=== PATIENT | female | born 1945 | race Two or more races ===

== ENCOUNTER 2016-09-11 13:37 | Inpatient (IN) | payer OTHER ==
[~2016-09-11] VITALS: Ht 152.4 cm; Wt 54.0 kg
[~2016-09-11 13:37] MED LIST: AMLODIPINE BESY10 MG GT; ATORVASTATIN CA40 MG GT; ATORVASTATIN CA80 MG PO; ATROPINE 1100 DROP/5 BOTH EYES; CERTA-VITE240 ML GT; CHILDREN'S ASPI81 M1 GT; CHILDREN'S ASPI81 M1 PO; DONEPEZIL HCL5 MG PO; FLUOXETINE HCL20 MG GT; GEMFIBROZIL600 MG PO; GLUCOPHAGE500 MG PO; HEPARIN SO5000 UNITS SC; LANTUS 10100 UNITS/ SC; LEVEMIR100 UNIT/2 SC; LEVOFLOXACIN750 MG PO; LISINOPRIL10 MG PO; LISINOPRIL5 MG PO; METFORMIN HCL1000 MG PO; METFORMIN HCL500 MG GT; METFORMIN HCL500 MG PO; METOPROLOL SUC100 MG PO; METOPROLOL TART50 MG GT; MYCOSTATIN 100,60 ML PO; NITROSTAT0.4 MG SL; NOVOLOG 10100 UNITS/ SC; PLAVIX75 MG GT; PREVACID SOLUTA30 MG GT; RANITIDINE15 MG/1 ML GT; SERTRALINE HCL50 MG GT; TYLENOL REGULA325 MG GT; ULTRAM50 MG PO; VANCOCIN HCL125 MG GT; VANCOMYCIN HCL125 MG PO; ZESTRIL10 MG PO
[2016-09-11 15:46] LABS: HEMATOCRIT 30.3 % (36.0-46.0); MCH 24.2 PG (29.0-34.0); MCHC 31.7 G/DL (30.0-36.0); MCV 76.3 FL (83-99); MEAN PLAT.VOLUME 8.6 uM^3 (9.5-12.4); PLATELET COUNT 431 K/uL (156-360); RBC DIS.WIDTH-CV 16.2 % (11.8-14.6); RBC DIS.WIDTH-SD 43.3 % (39-53); RED BLOOD COUNT 3.97 M/uL (3.80-5.20); WHITE BLOOD COUNT 20.3 K/uL (4.1-10.2)
[2016-09-11 15:54] LABS: CHLORIDE 96 mEq/L (99-109); POTASSIUM 4.9 mEq/L (3.7-5.4); SODIUM 131 mEq/L (136-147)
[2016-09-11 15:59] LABS: GLUCOSE 299 mg/dL (70-99)
[2016-09-11 16:00] LABS: ANION GAP 15 MEQ/L (2-14)
[2016-09-11 16:03] LABS: GFR ESTIMATE (CALCULATED) > 59 mL/min/
[2016-09-11 16:04] LABS: UREA NITROGEN (BUN) 25 mg/dL (9-23)
[2016-09-11 16:06] LABS: TROP-I INTERPRETATION NEGATIVE; TROPONIN-I < 0.01 ng/mL (0.0-0.30)
[2016-09-11 21:15] VITALS: BP 181/87
[2016-09-11 23:00] LABS: TROP-I INTERPRETATION NEGATIVE; TROPONIN-I < 0.01 ng/mL (0.0-0.30)
[2016-09-11 23:57] VITALS: BP 174/89
[2016-09-12 04:41] VITALS: BP 159/80
[2016-09-12 05:51] LABS: TROP-I INTERPRETATION NEGATIVE; TROPONIN-I < 0.01 ng/mL (0.0-0.30)
[2016-09-12 09:39] VITALS: BP 163/91
[2016-09-12 10:15] LABS: POINT-OF-CARE USER ID NUTSLF44
[2016-09-12 12:05] VITALS: BP 138/84
[2016-09-12 12:13] LABS: POINT-OF-CARE USER ID NUTSLF44
[2016-09-12 15:00] VITALS: BP 152/86
[2016-09-12 16:59] LABS: POINT-OF-CARE USER ID NUTSLF44
[2016-09-12 20:00] VITALS: BP 166/81
[2016-09-12 23:55] VITALS: BP 170/87
[2016-09-13 04:00] VITALS: BP 146/80
[2016-09-13 06:50] LABS: HEMATOCRIT 30.1 % (36.0-46.0); MCH 24.1 PG (29.0-34.0); MCHC 31.6 G/DL (30.0-36.0); MCV 76.2 FL (83-99); MEAN PLAT.VOLUME 8.8 uM^3 (9.5-12.4); PLATELET COUNT 422 K/uL (156-360); RBC DIS.WIDTH-CV 16.4 % (11.8-14.6); RBC DIS.WIDTH-SD 45.7 % (39-53); RED BLOOD COUNT 3.95 M/uL (3.80-5.20); WHITE BLOOD COUNT 18.9 K/uL (4.1-10.2)
[2016-09-13 07:01] LABS: EOSINOPHIL COUNT 0.2 K/uL (0-0.3); IMMATURE GRANULOCYTE (%) 0.6 % (0.0-0.7); IMMATURE GRANULOCYTE COUNT 0.1 K/uL; MONOCYTE (%) 6.2 % (3-12); MONOCYTE COUNT 1.2 K/uL (0-0.8); NEUTROPHIL (%) 81.3 % (45-76); NEUTROPHIL COUNT 15.4 K/uL (1.8-6.4)
[2016-09-13 07:28] VITALS: BP 132/93
[2016-09-13 09:53] LABS: ADD MIUA? YES; BILIRUBIN NEGATIVE; BLOOD MODERATE; COLOR YELLOW ((YELLOW)); GLUCOSE (STRIP) NEGATIVE; KETONES NEGATIVE; LEUKOCYTES LARGE; NITRITE POSITIVE; PH, URINE 5.5 (5-8); PROTEIN (STRIP) 30; UROBILINOGEN 0.2 MG/DL (0.2-1.0)
[2016-09-13 11:19] LABS: BACTERIA 2+; CASTS NONE SEEN /LPF; CRYSTALS NONE SEEN; EPITHELIAL CELLS RARE; MUCUS NONE SEEN; WHITE BLOOD CELLS TNTC /HPF (0-5)
[2016-09-13 11:29] LABS: POINT-OF-CARE METER ID UU14174216
[2016-09-13 11:54] VITALS: BP 130/80
[2016-09-13 14:55] VITALS: BP 158/80
[2016-09-13 16:25] LABS: POINT-OF-CARE METER ID UU14174216
[2016-09-13 20:00] VITALS: BP 168/84
[2016-09-13 21:20] LABS: POINT-OF-CARE METER ID UU13113698
[2016-09-13 23:55] VITALS: BP 169/87
[2016-09-14 04:00] VITALS: BP 158/86
[2016-09-14 07:45] LABS: POINT-OF-CARE METER ID UU13113781
[2016-09-14 07:50] LABS: INTER. NORMALIZED RATIO 1.1; PROTHROMBIN TIME 11.6 (9.2-11.2); PTT 34.6 (25-32)
[2016-09-14 09:00] VITALS: BP 142/89
[2016-09-14 11:19] LABS: POINT-OF-CARE METER ID UU13113781
[2016-09-14 12:00] VITALS: BP 145/72
[2016-09-14 14:52] LABS: TYPE OF FLUID PLEURAL
[2016-09-14 15:21] LABS: BODY FLUID RBC'S 20000 /MM^3 (0-100); BODY FLUID WBC'S 7646 /MM^3 (0-500)
[2016-09-14 15:32] LABS: BODY FLUID LDH 97 IU/L
[2016-09-14 15:42] LABS: BODY FLUID EOSINOPHILS 0 % (0-25); MONO RAW COUNT 19; MONONUCLEAR WBC'S 19 %; POLY RAW COUNT 81; POLYNUCLEAR WBC'S 81 % (0-25)
[2016-09-14 16:58] LABS: POINT-OF-CARE METER ID UU13113781
[2016-09-14 18:23] VITALS: BP 156/101
[2016-09-14 19:45] VITALS: BP 167/85
[2016-09-14 20:53] LABS: POINT-OF-CARE METER ID UU13113781; POINT-OF-CARE USER ID ENVMNS
[2016-09-14 23:55] VITALS: BP 146/76
[2016-09-15 04:00] VITALS: BP 128/67
[2016-09-15 06:50] LABS: HEMATOCRIT 31.8 % (36.0-46.0); MCH 24.1 PG (29.0-34.0); MCHC 31.1 G/DL (30.0-36.0); MCV 77.6 FL (83-99); MEAN PLAT.VOLUME 8.9 uM^3 (9.5-12.4); PLATELET COUNT 438 K/uL (156-360); RBC DIS.WIDTH-CV 16.8 % (11.8-14.6); RBC DIS.WIDTH-SD 47.5 % (39-53)
[2016-09-15 06:59] LABS: EOSINOPHIL (%) 1.4 % (0-5); EOSINOPHIL COUNT 0.3 K/uL (0-0.3); IMMATURE GRANULOCYTE (%) 1.4 % (0.0-0.7); IMMATURE GRANULOCYTE COUNT 0.3 K/uL; LYMPHOCYTE COUNT 2.7 K/uL (1.0-2.8); MONOCYTE (%) 7.7 % (3-12); MONOCYTE COUNT 1.6 K/uL (0-0.8); NEUTROPHIL (%) 75.6 % (45-76); NEUTROPHIL COUNT 15.1 K/uL (1.8-6.4)
[2016-09-15 07:15] LABS: ANION GAP 11 MEQ/L (2-14); CHLORIDE 99 MEQ/L (99-109); GFR ESTIMATE (CALCULATED) 58 mL/min/; GLUCOSE 282 mg/dL (70-99); POTASSIUM 4.3 MEQ/L (3.7-5.4); SAMPLE HEMOLYSIS CHECK 0; SAMPLE ICTERIC CHECK 0; SAMPLE LIPEMIA CHECK 0; SODIUM 135 MEQ/L (136-147); UREA NITROGEN (BUN) 35 mg/dL (9-23)
[2016-09-15 08:30] VITALS: BP 172/81
[2016-09-15 11:57] VITALS: BP 174/84
[2016-09-15 17:00] VITALS: BP 138/75
[2016-09-15 20:40] VITALS: BP 142/69
[2016-09-15 20:42] LABS: POINT-OF-CARE USER ID ENVMNS
[2016-09-16 00:20] VITALS: BP 138/76
[2016-09-16 05:48] VITALS: BP 146/78
[2016-09-16 06:03] LABS: HEMATOCRIT 29.6 % (36.0-46.0); MCH 24.5 PG (29.0-34.0); MCHC 31.8 G/DL (30.0-36.0); MCV 77.3 FL (83-99); MEAN PLAT.VOLUME 8.8 uM^3 (9.5-12.4); PLATELET COUNT 426 K/uL (156-360); RBC DIS.WIDTH-CV 16.9 % (11.8-14.6); RBC DIS.WIDTH-SD 47.5 % (39-53); RED BLOOD COUNT 3.83 M/uL (3.80-5.20); WHITE BLOOD COUNT 17.4 K/uL (4.1-10.2)
[2016-09-16 08:08] LABS: POINT-OF-CARE METER ID UU13113698; POINT-OF-CARE USER ID ENVKC36
[2016-09-16 09:30] VITALS: BP 161/75
[2016-09-16 12:00] VITALS: BP 152/83
[2016-09-16 17:40] VITALS: BP 169/89
[2016-09-16 20:02] VITALS: BP 159/77
[2016-09-16 21:16] LABS: POINT-OF-CARE METER ID UU13113698
[2016-09-17] VITALS: BP 183/81
[2016-09-17 04:07] VITALS: BP 169/83
[2016-09-17 08:00] LABS: POINT-OF-CARE METER ID UU14174216
[2016-09-17 08:16] VITALS: BP 136/66
[2016-09-17 09:37] LABS: C DIFF TOXIN NEGATIVE (NEGATIVE); PROBE CHECK PASS; SPECIMEN PROCESSING CONTROL PASS
[2016-09-17 10:38] LABS: POINT-OF-CARE METER ID UU14174216
[2016-09-17 12:13] VITALS: BP 154/68
[2016-09-17 16:20] LABS: POINT-OF-CARE METER ID UU14174216
[2016-09-17 16:35] VITALS: BP 144/78
[2016-09-17 19:44] VITALS: BP 160/75
[2016-09-17 21:53] LABS: POINT-OF-CARE METER ID UU14174216
[2016-09-18] VITALS: BP 155/79
[2016-09-18 03:48] VITALS: BP 173/82
[2016-09-18 07:45] LABS: POINT-OF-CARE METER ID UU14174216; POINT-OF-CARE USER ID ENVKC36
[2016-09-18 09:25] VITALS: BP 145/69
[2016-09-18 11:52] LABS: POINT-OF-CARE METER ID UU14174216; POINT-OF-CARE USER ID ENVKC36
[2016-09-18 12:21] VITALS: BP 128/62
[2016-09-18 16:36] LABS: POINT-OF-CARE METER ID UU14174216; POINT-OF-CARE USER ID ENVKC36
[2016-09-18 16:57] VITALS: BP 126/86
[2016-09-18 20:07] VITALS: BP 149/82
[2016-09-18 21:39] LABS: POINT-OF-CARE METER ID UU14174216
[2016-09-19 00:55] VITALS: BP 163/80
[2016-09-19 03:24] VITALS: BP 158/81
[2016-09-19 07:49] LABS: POINT-OF-CARE METER ID UU13113781; POINT-OF-CARE USER ID ENVKC36
[2016-09-19 09:00] VITALS: BP 146/88
[2016-09-19] MEDS ORDERED: ANCEF,KEFZ2 GM/100 M IV (09:04)
[2016-09-19] MEDS ORDERED: DUONEB 2.5-0.5 M3 ML AEROSOL (09:04)
[2016-09-19] MEDS ORDERED: LOPRESSOR100 M1 GT (09:04)
[2016-09-19] MEDS ORDERED: METFORMIN HCL500 MG GT (09:04)
[2016-09-19] MEDS ORDERED: CLOPIDOGREL75 MG GT (09:04)
[2016-09-19] MEDS ORDERED: LEVEMIR100 UNIT/2 SC (09:04)
[2016-09-19 11:57] VITALS: BP 150/74
[2016-09-19 11:57] LABS: POINT-OF-CARE METER ID UU13113781; POINT-OF-CARE USER ID ENVKC36
[2016-09-19 15:45] VITALS: BP 145/73
[2016-09-19 16:38] LABS: POINT-OF-CARE METER ID UU13113781; POINT-OF-CARE USER ID ENVKC36
== END 2016-09-19 18:07 | disposition home health service (06) | DRG 315 ==
LOC: EME 13:37 → EDOF 18:19 → 4EAST 18:19
PROVIDERS: Emergency Medicine; Internal Medicine; Radiology Diagnostic Radiology
PROC: 0W9B3ZZ Drainage of Left Pleural Cavity, Percutaneous Approach (ICD-10-PCS; principal; 2016-09-14)
DX: T82.7XXA Infection and inflammatory reaction due to other cardiac and vascular devices, implants and grafts, initial encounter (principal); M86.8X8 Other osteomyelitis, other site; J90 Pleural effusion, not elsewhere classified; A04.7 Enterocolitis due to Clostridium difficile; Z93.1 Gastrostomy status; I69.351 Hemiplegia and hemiparesis following cerebral infarction affecting right dominant side; B95.61 Methicillin susceptible Staphylococcus aureus infection as the cause of diseases classified elsewhere; I25.10 Atherosclerotic heart disease of native coronary artery without angina pectoris; E11.9 Type 2 diabetes mellitus without complications; R00.0 Tachycardia, unspecified; S42.291G Other displaced fracture of upper end of right humerus, subsequent encounter for fracture with delayed healing; W18.30XD Fall on same level, unspecified, subsequent encounter; Z87.11 Personal history of peptic ulcer disease; I69.320 Aphasia following cerebral infarction; I25.2 Old myocardial infarction; F03.90 Unspecified dementia, unspecified severity, without behavioral disturbance, psychotic disturbance, mood disturbance, and anxiety; I10 Essential (primary) hypertension; R94.31 Abnormal electrocardiogram [ECG] [EKG]; Z79.84 Long term (current) use of oral hypoglycemic drugs; Z79.4 Long term (current) use of insulin; R91.1 Solitary pulmonary nodule; Y83.2 Surgical operation with anastomosis, bypass or graft as the cause of abnormal reaction of the patient, or of later complication, without mention of misadventure at the time of the procedure
CPT/HCPCS: 71020; 71250; 73030; 76937; 80048; 81003; 82945; 82948; 83605; 83615 91; 83880; 84484; 85025; 85027; 85610; 85730; 87040; 87070; 87075; 87077; 87147; 87186; 87205; 87493; 88108; 88305; 89051; 93005; 99202; 99281; 99285; J0690; J1644; J1815; J1956; J7040

== ENCOUNTER 2016-12-10 19:16 | Inpatient (IN) | payer OTHER ==
[~2016-12-10] VITALS: Ht 152.4 cm; Wt 53.7 kg
[~2016-12-10 19:16] MED LIST changes: +ANCEF,KEFZ2 GM/100 M IV; +CLOPIDOGREL75 MG GT; +DUONEB 2.5-0.5 M3 ML AEROSOL; +LOPRESSOR100 M1 GT
[2016-12-10 20:29] LABS: EOSINOPHIL (%) 1.1 % (0-5); EOSINOPHIL COUNT 0.1 K/uL (0-0.3); HEMATOCRIT 33.3 % (36.0-46.0); IMMATURE GRANULOCYTE (%) 0.8 % (0.0-0.7); IMMATURE GRANULOCYTE COUNT 0.1 K/uL; INSTRUMENT ABS NEUTROPHIL CT 8.7 K/uL; LYMPHOCYTE COUNT 2.1 K/uL (1.0-2.8); MCH 23.7 PG (29.0-34.0); MCHC 30.3 G/DL (30.0-36.0); MCV 78.2 FL (83-99); MONOCYTE COUNT 0.8 K/uL (0-0.8); NEUTROPHIL (%) 73.5 % (45-76); NEUTROPHIL COUNT 8.7 K/uL (1.8-6.4); PLATELET COUNT 262 K/uL (156-360); RBC DIS.WIDTH-CV 16.9 % (11.8-14.6); RED BLOOD COUNT 4.26 M/uL (3.80-5.20); WHITE BLOOD COUNT 11.9 K/uL (4.1-10.2)
[2016-12-10 21:04] LABS: CHLORIDE 104 mEq/L (99-109); POTASSIUM 4.9 mEq/L (3.7-5.4); SODIUM 134 mEq/L (136-147)
[2016-12-10 21:07] LABS: GLUCOSE 244 mg/dL (70-99); TROP-I INTERPRETATION NEGATIVE; TROPONIN-I < 0.01 ng/mL (0.0-0.30)
[2016-12-10 21:08] LABS: ANION GAP 13 MEQ/L (2-14)
[2016-12-10 21:09] LABS: TOTAL BILIRUBIN 0.6 mg/dL (0.0-1.0)
[2016-12-10 21:10] LABS: ALKALINE PHOSPHATASE 163 IU/L (3-129); GFR ESTIMATE (CALCULATED) 52 mL/min/
[2016-12-10 21:11] LABS: UREA NITROGEN (BUN) 56 mg/dL (9-23)
[2016-12-10] MEDS ORDERED: LEVEMIR100 UNIT/2 SC (21:51)
[2016-12-10] MEDS ORDERED: SERTRALINE HCL50 MG GT (21:52)
[2016-12-10] MEDS ORDERED: METOPROLOL TART50 MG GT (21:52)
[2016-12-10] MEDS ORDERED: PROVENTIL,2.5 MG/3 M IH (21:52)
[2016-12-10] MEDS ORDERED: LANSOPRAZOLE30 MG GT (21:52)
[2016-12-10] MEDS ORDERED: DONEPEZIL HCL5 MG GT (21:53)
[2016-12-10] MEDS ORDERED: LORATADINE10 M2 GT (21:53)
[2016-12-10] MEDS ORDERED: LISINOPRIL5 MG GT (21:53)
[2016-12-10] MEDS ORDERED: ATORVASTATIN CA40 MG GT (21:53)
[2016-12-10] MEDS ORDERED: VITAL AF 1.2 C237 ML PO (21:54)
[2016-12-10 22:01] LABS: ADD MIUA? YES; BILIRUBIN NEGATIVE; BLOOD NEGATIVE; COLOR YELLOW ((YELLOW)); GLUCOSE (STRIP) 50; KETONES NEGATIVE; LEUKOCYTES NEGATIVE; NITRITE NEGATIVE; PROTEIN (STRIP) 30; SPECIFIC GRAVITY 1.017 (1.000-1.030); UROBILINOGEN 0.2 MG/DL (0.2-1.0)
[2016-12-10 22:28] LABS: BACTERIA RARE /HPF; EPITHELIAL CELLS NONE SEEN /HPF; MUCUS NONE SEEN /LPF; RED BLOOD CELLS 0-5 /HPF (0-5); UCUL ADDED? NO; WHITE BLOOD CELLS NONE SEEN /HPF (0-5)
[2016-12-10 23:15] VITALS: BP 195/78
[2016-12-11 01:07] VITALS: BP 132/62
[2016-12-11 08:20] VITALS: BP 175/81
[2016-12-11 11:53] LABS: POINT-OF-CARE METER ID UU13113725
[2016-12-11 16:14] LABS: POINT-OF-CARE METER ID UU13113725
[2016-12-11 16:19] VITALS: BP 142/80
[2016-12-11 20:00] VITALS: BP 148/72
[2016-12-12 00:10] VITALS: BP 152/74
[2016-12-12 04:08] VITALS: BP 143/70
[2016-12-12 06:00] LABS: EOSINOPHIL (%) 1.3 % (0-5); EOSINOPHIL COUNT 0.2 K/uL (0-0.3); HEMATOCRIT 30.2 % (36.0-46.0); IMMATURE GRANULOCYTE (%) 0.5 % (0.0-0.7); IMMATURE GRANULOCYTE COUNT 0.1 K/uL; INSTRUMENT ABS NEUTROPHIL CT 8.6 K/uL; LYMPHOCYTE COUNT 2.4 K/uL (1.0-2.8); MCH 23.5 PG (29.0-34.0); MCHC 30.5 G/DL (30.0-36.0); MEAN PLAT.VOLUME 8.9 uM^3 (9.5-12.4); MONOCYTE (%) 7.5 % (3-12); MONOCYTE COUNT 0.9 K/uL (0-0.8); NEUTROPHIL (%) 70.7 % (45-76); NEUTROPHIL COUNT 8.6 K/uL (1.8-6.4); PLATELET COUNT 276 K/uL (156-360); RBC DIS.WIDTH-CV 16.8 % (11.8-14.6); RBC DIS.WIDTH-SD 47.1 % (39-53); RED BLOOD COUNT 3.92 M/uL (3.80-5.20); WHITE BLOOD COUNT 12.2 K/uL (4.1-10.2)
[2016-12-12 06:26] LABS: ANION GAP 10 MEQ/L (2-14); CHLORIDE 105 MEQ/L (99-109); GFR ESTIMATE (CALCULATED) > 59 mL/min/; POTASSIUM 4.4 MEQ/L (3.7-5.4); SAMPLE HEMOLYSIS CHECK 0; SAMPLE ICTERIC CHECK 0; SAMPLE LIPEMIA CHECK 0; SODIUM 138 MEQ/L (136-147); UREA NITROGEN (BUN) 33 mg/dL (9-23)
[2016-12-12 06:28] LABS: GLUCOSE 98 mg/dL (70-99)
[2016-12-12 06:29] LABS: ALKALINE PHOSPHATASE 150 IU/L (3-129)
[2016-12-12 07:27] LABS: POINT-OF-CARE METER ID UU13113725
[2016-12-12 11:01] VITALS: BP 152/75
[2016-12-12 11:21] LABS: POINT-OF-CARE METER ID UU13113725
[2016-12-12 15:49] LABS: POINT-OF-CARE METER ID UU13113725
[2016-12-12 16:33] VITALS: BP 152/72
[2016-12-12 22:10] LABS: C DIFF TOXIN POSITIVE (NEGATIVE)
[2016-12-12 22:13] LABS: PROBE CHECK PASS
[2016-12-12 23:44] VITALS: BP 140/64
[2016-12-13 07:28] VITALS: BP 136/64
[2016-12-13 08:33] LABS: POINT-OF-CARE METER ID UU13113725
[2016-12-13 10:39] VITALS: BP 138/60
[2016-12-13 10:40] LABS: HBSG INDEX 0.26; HPCA INDEX 0.13
[2016-12-13 10:41] LABS: ANTI-HEPATITIS A VIRUS (IGM) Nonreactive; HAV INDEX 0.23
[2016-12-13 10:42] LABS: ANTI-HEPATITIS B CORE (IGM) Nonreactive; HBC IgM INDEX 0.07
[2016-12-13 18:40] VITALS: BP 148/72
[2016-12-13 22:45] VITALS: BP 141/62
[2016-12-14 05:57] LABS: POINT-OF-CARE METER ID UU13113725
[2016-12-14 07:29] VITALS: BP 158/78
[2016-12-14 10:58] VITALS: BP 146/72
[2016-12-14 11:55] LABS: ANION GAP 12 MEQ/L (2-14); CHLORIDE 109 MEQ/L (99-109); GFR ESTIMATE (CALCULATED) > 59 mL/min/; GLUCOSE 138 mg/dL (70-99); POTASSIUM 3.9 MEQ/L (3.7-5.4); SAMPLE HEMOLYSIS CHECK 0; SAMPLE ICTERIC CHECK 0; SAMPLE LIPEMIA CHECK 0; SODIUM 139 MEQ/L (136-147); UREA NITROGEN (BUN) 26 mg/dL (9-23)
[2016-12-14 13:54] LABS: POINT-OF-CARE METER ID UU13113725
[2016-12-14 16:00] VITALS: BP 154/67
[2016-12-15 07:21] LABS: EOSINOPHIL (%) 2.3 % (0-5); EOSINOPHIL COUNT 0.2 K/uL (0-0.3); HEMATOCRIT 29.1 % (36.0-46.0); IMMATURE GRANULOCYTE (%) 0.6 % (0.0-0.7); IMMATURE GRANULOCYTE COUNT 0.1 K/uL; LYMPHOCYTE COUNT 2.6 K/uL (1.0-2.8); MCH 23.7 PG (29.0-34.0); MCHC 30.2 G/DL (30.0-36.0); MCV 78.4 FL (83-99); MEAN PLAT.VOLUME 9.1 uM^3 (9.5-12.4); MONOCYTE (%) 6.6 % (3-12); MONOCYTE COUNT 0.6 K/uL (0-0.8); NEUTROPHIL (%) 63.2 % (45-76); PLATELET COUNT 322 K/uL (156-360); RBC DIS.WIDTH-CV 16.6 % (11.8-14.6); RBC DIS.WIDTH-SD 47.8 % (39-53); RED BLOOD COUNT 3.71 M/uL (3.80-5.20); WHITE BLOOD COUNT 9.6 K/uL (4.1-10.2)
[2016-12-15 07:34] LABS: ANION GAP 10 MEQ/L (2-14); CHLORIDE 109 MEQ/L (99-109); GFR ESTIMATE (CALCULATED) > 59 mL/min/; GLUCOSE 139 mg/dL (70-99); SAMPLE HEMOLYSIS CHECK 0; SAMPLE ICTERIC CHECK 0; SAMPLE LIPEMIA CHECK 0; SODIUM 141 MEQ/L (136-147); UREA NITROGEN (BUN) 27 mg/dL (9-23)
[2016-12-15 08:39] VITALS: BP 160/80
[2016-12-15 11:00] VITALS: BP 145/80
[2016-12-15 11:59] VITALS: BP 145/80
[2016-12-15 16:40] VITALS: BP 178/84
[2016-12-15 16:58] LABS: POINT-OF-CARE METER ID UU13113725
[2016-12-15 23:11] VITALS: BP 196/82
[2016-12-16 04:00] VITALS: BP 185/64
[2016-12-16 05:55] LABS: POINT-OF-CARE METER ID UU13113725
[2016-12-16 07:08] LABS: EOSINOPHIL COUNT 0.2 K/uL (0-0.3); HEMATOCRIT 30.4 % (36.0-46.0); IMMATURE GRANULOCYTE (%) 1.2 % (0.0-0.7); IMMATURE GRANULOCYTE COUNT 0.1 K/uL; MCH 23.6 PG (29.0-34.0); MCHC 29.9 G/DL (30.0-36.0); MEAN PLAT.VOLUME 9.1 uM^3 (9.5-12.4); MONOCYTE (%) 5.2 % (3-12); MONOCYTE COUNT 0.6 K/uL (0-0.8); NEUTROPHIL (%) 64.2 % (45-76); PLATELET COUNT 360 K/uL (156-360); RBC DIS.WIDTH-CV 16.6 % (11.8-14.6); RED BLOOD COUNT 3.85 M/uL (3.80-5.20); WHITE BLOOD COUNT 10.9 K/uL (4.1-10.2)
[2016-12-16 08:00] VITALS: BP 139/74; BP 160/90
[2016-12-16 08:17] LABS: ALKALINE PHOSPHATASE 127 IU/L (3-129); ANION GAP 8 MEQ/L (2-14); CHLORIDE 107 MEQ/L (99-109); GFR ESTIMATE (CALCULATED) > 59 mL/min/; GLUCOSE 114 mg/dL (70-99); SAMPLE HEMOLYSIS CHECK 0; SAMPLE ICTERIC CHECK 0; SAMPLE LIPEMIA CHECK 0; SODIUM 138 MEQ/L (136-147); TOTAL BILIRUBIN 0.3 MG/DL (0.0-1.0); UREA NITROGEN (BUN) 29 mg/dL (9-23)
[2016-12-16 12:23] LABS: POINT-OF-CARE METER ID UU13113725
[2016-12-16 16:00] VITALS: BP 140/70
[2016-12-16 16:20] LABS: POINT-OF-CARE METER ID UU13113725
[2016-12-16 22:59] VITALS: BP 142/70
[2016-12-17 07:25] VITALS: BP 120/72
[2016-12-17 15:44] VITALS: BP 140/70
[2016-12-17] MEDS ORDERED: METRONIDAZOLE500 MG GT (18:42)
[2016-12-17] MEDS ORDERED: LISINOPRIL20 MG GT (18:42)
== END 2016-12-17 21:13 | disposition home or self-care (01) | DRG 178 ==
LOC: EME → EDBD 19:16 → EME 19:16 → EDOF 22:00 → 5EAST 22:00
PROVIDERS: Emergency Medicine; Internal Medicine; Internal Medicine Infectious Disease
DX: J69.0 Pneumonitis due to inhalation of food and vomit (principal); J90 Pleural effusion, not elsewhere classified; I69.391 Dysphagia following cerebral infarction; R13.10 Dysphagia, unspecified; Z93.1 Gastrostomy status; I69.351 Hemiplegia and hemiparesis following cerebral infarction affecting right dominant side; E11.9 Type 2 diabetes mellitus without complications; I25.10 Atherosclerotic heart disease of native coronary artery without angina pectoris; Z95.5 Presence of coronary angioplasty implant and graft; I69.320 Aphasia following cerebral infarction; B37.0 Candidal stomatitis; A04.7 Enterocolitis due to Clostridium difficile; K71.6 Toxic liver disease with hepatitis, not elsewhere classified; T46.6X5A Adverse effect of antihyperlipidemic and antiarteriosclerotic drugs, initial encounter
CPT/HCPCS: 36415; 71010; 71020; 76705; 80048; 80053; 80061; 80074; 81003; 82948; 83036; 83605; 83880; 84443; 84484; 85025; 87040; 87493; 93005; 94760; 99202; 99281; 99284; J1650; J1815; J2543; J7030; J7050

== ENCOUNTER 2017-01-19 16:52 | Inpatient (IN) | payer OTHER ==
[~2017-01-19] VITALS: Ht 152.4 cm; Wt 61.1 kg
[~2017-01-19 16:52] MED LIST changes: +DONEPEZIL HCL5 MG GT; +LANSOPRAZOLE30 MG GT; +LISINOPRIL20 MG GT; +LISINOPRIL5 MG GT; +LORATADINE10 M2 GT; +METRONIDAZOLE500 MG GT; +PROVENTIL,2.5 MG/3 M IH; +VITAL AF 1.2 C237 ML PO
[2017-01-19 18:23] LABS: HEMATOCRIT 24.3 % (36.0-46.0); MCH 24.1 PG (29.0-34.0); MCHC 30.5 G/DL (30.0-36.0); MCV 79.2 FL (83-99); MEAN PLAT.VOLUME 8.3 uM^3 (9.5-12.4); PLATELET COUNT 463 K/uL (156-360); RBC DIS.WIDTH-CV 20.1 % (11.8-14.6); RBC DIS.WIDTH-SD 56.9 % (39-53); RED BLOOD COUNT 3.07 M/uL (3.80-5.20); WHITE BLOOD COUNT 11.9 K/uL (4.1-10.2)
[2017-01-19 18:33] LABS: CHLORIDE 106 mEq/L (99-109); POTASSIUM 4.7 mEq/L (3.7-5.4); SODIUM 137 mEq/L (136-147)
[2017-01-19 18:35] LABS: GLUCOSE 172 mg/dL (70-99)
[2017-01-19 18:36] LABS: ANION GAP 10 MEQ/L (2-14)
[2017-01-19 18:37] LABS: EOSINOPHIL (%) 3.5 % (0-5); EOSINOPHIL COUNT 0.4 K/uL (0-0.3); IMMATURE GRANULOCYTE (%) 0.7 % (0.0-0.7); IMMATURE GRANULOCYTE COUNT 0.1 K/uL; INSTRUMENT ABS NEUTROPHIL CT 8.3 K/uL; LYMPHOCYTE COUNT 2.4 K/uL (1.0-2.8); MONOCYTE (%) 5.5 % (3-12); MONOCYTE COUNT 0.7 K/uL (0-0.8); NEUTROPHIL (%) 70.2 % (45-76); NEUTROPHIL COUNT 8.3 K/uL (1.8-6.4); TOTAL BILIRUBIN 0.3 mg/dL (0.0-1.0)
[2017-01-19 18:38] LABS: INTER. NORMALIZED RATIO 1.2; PROTHROMBIN TIME 11.8 (9.2-11.2)
[2017-01-19 18:39] LABS: ALKALINE PHOSPHATASE 97 IU/L (3-129); GFR ESTIMATE (CALCULATED) 52 mL/min/
[2017-01-19 18:40] LABS: UREA NITROGEN (BUN) 37 mg/dL (9-23)
[2017-01-19] MEDS ORDERED: CHILDREN'S325 MG/10. GT (19:51)
[2017-01-19] MEDS ORDERED: NORVASC10 MG GT (19:53)
[2017-01-19] MEDS ORDERED: LO-DOSE ASPIRIN81 M1 GT (19:53)
[2017-01-19] MEDS ORDERED: PLAVIX75 MG GT (19:54)
[2017-01-19] MEDS ORDERED: ARICEPT5 MG GT (19:56)
[2017-01-19] MEDS ORDERED: FLUOXETINE HCL20 M1 GT (19:57)
[2017-01-19 19:58] LABS: TROP-I INTERPRETATION NEGATIVE; TROPONIN-I 0.02 ng/mL (0.0-0.30)
[2017-01-19] MEDS ORDERED: LOPID600 MG GT (19:58)
[2017-01-19] MEDS ORDERED: NUTRISOURCE FI1 EACH GT (19:59)
[2017-01-19] MEDS ORDERED: NOVOLOG PE100 UNITS/ SC (20:02)
[2017-01-19] MEDS ORDERED: LANTUS 3 M100 UNITS1 SC (20:03)
[2017-01-19] MEDS ORDERED: ZESTRIL10 MG GT (20:04)
[2017-01-19] MEDS ORDERED: CHILDREN'S5 MG/5 M1 GT (20:07)
[2017-01-19] MEDS ORDERED: GLUCOPHAGE500 MG GT (20:08)
[2017-01-19] MEDS ORDERED: METOPROLOL TART75 MG GT (20:09)
[2017-01-19] MEDS ORDERED: ZOLOFT25 MG GT (20:12)
[2017-01-19] MEDS ORDERED: RANITIDINE15 MG/1 ML GT (20:12)
[2017-01-19] MEDS ORDERED: ULTRAM50 MG GT (20:13)
[2017-01-19] MEDS ORDERED: VANCOMYCIN GT (20:18)
[2017-01-19] MEDS ORDERED: OXACILLIN IV (20:31)
[2017-01-19 21:41] VITALS: BP 136/56
[2017-01-19 22:38] VITALS: BP 121/58
[2017-01-19 23:05] VITALS: BP 121/61
[2017-01-20] VITALS (11 sets, daily range): BP systolic 100–149; BP diastolic 54–83
[2017-01-20 06:50] LABS: HEMATOCRIT 31.1 % (36.0-46.0); MCV 79.1 FL (83-99)
[2017-01-20 07:37] LABS: ALKALINE PHOSPHATASE 84 IU/L (3-129); ANION GAP 9 MEQ/L (2-14); CHLORIDE 106 MEQ/L (99-109); GFR ESTIMATE (CALCULATED) 58 mL/min/; GLUCOSE 175 mg/dL (70-99); SAMPLE HEMOLYSIS CHECK 1; SAMPLE ICTERIC CHECK 0; SAMPLE LIPEMIA CHECK 0; SODIUM 136 MEQ/L (136-147); TOTAL BILIRUBIN 0.4 MG/DL (0.0-1.0); UREA NITROGEN (BUN) 36 mg/dL (9-23)
[2017-01-20 07:41] LABS: POTASSIUM 4.8 MEQ/L (3.7-5.4)
[2017-01-20 16:49] LABS: POINT-OF-CARE METER ID UU13113725
[2017-01-20 19:20] LABS: POINT-OF-CARE METER ID UU13113725
[2017-01-20 23:50] LABS: HEMATOCRIT 25.2 % (36.0-46.0); MCV 80.3 FL (83-99)
[2017-01-21] VITALS (14 sets, daily range): BP systolic 000–182; BP diastolic 00–100
[2017-01-21 11:42] LABS: EOSINOPHIL (%) 3.2 % (0-5); EOSINOPHIL COUNT 0.3 K/uL (0-0.3); HEMATOCRIT 27.8 % (36.0-46.0); IMMATURE GRANULOCYTE (%) 0.6 % (0.0-0.7); IMMATURE GRANULOCYTE COUNT 0.1 K/uL; INSTRUMENT ABS NEUTROPHIL CT 5.4 K/uL; LYMPHOCYTE COUNT 2.1 K/uL (1.0-2.8); MCH 26.6 PG (29.0-34.0); MCHC 32.4 G/DL (30.0-36.0); MCV 82.2 FL (83-99); MONOCYTE (%) 6.7 % (3-12); MONOCYTE COUNT 0.6 K/uL (0-0.8); NEUTROPHIL (%) 64.3 % (45-76); NEUTROPHIL COUNT 5.4 K/uL (1.8-6.4); RBC DIS.WIDTH-CV 17.7 % (11.8-14.6); RBC DIS.WIDTH-SD 52.9 % (39-53); RED BLOOD COUNT 3.38 M/uL (3.80-5.20); WHITE BLOOD COUNT 8.4 K/uL (4.1-10.2)
[2017-01-21 11:51] LABS: ANION GAP 9 MEQ/L (2-14); CHLORIDE 115 MEQ/L (99-109); GFR ESTIMATE (CALCULATED) > 59 mL/min/; GLUCOSE 162 mg/dL (70-99); POTASSIUM 4.5 MEQ/L (3.7-5.4); SAMPLE HEMOLYSIS CHECK 0; SAMPLE ICTERIC CHECK 0; SAMPLE LIPEMIA CHECK 0; UREA NITROGEN (BUN) 25 mg/dL (9-23)
[2017-01-21 11:57] LABS: SODIUM 144 MEQ/L (136-147)
[2017-01-21 12:26] LABS: POINT-OF-CARE METER ID UU13113725
[2017-01-21 12:56] LABS: MEAN PLAT.VOLUME 8.5 uM^3 (9.5-12.4); PLAT.SUFFICIENCY ADEQUATE
[2017-01-21 13:07] LABS: PLATELET COUNT 302 K/uL (156-360)
[2017-01-21 16:18] LABS: POINT-OF-CARE METER ID UU13113675
[2017-01-21 20:43] LABS: HEMATOCRIT 28.8 % (36.0-46.0); MCV 84.2 FL (83-99)
[2017-01-21 23:26] LABS: POINT-OF-CARE METER ID UU13113725
[2017-01-22] VITALS (11 sets, daily range): BP systolic 106–239; BP diastolic 63–104
[2017-01-22 08:37] LABS: HEMATOCRIT 21.2 % (36.0-46.0); MCH 26.4 PG (29.0-34.0); MCHC 31.1 G/DL (30.0-36.0); MCV 84.8 FL (83-99); MEAN PLAT.VOLUME 8.6 uM^3 (9.5-12.4); PLATELET COUNT 259 K/uL (156-360); RBC DIS.WIDTH-CV 18.4 % (11.8-14.6)
[2017-01-22 08:45] LABS: HEMATOCRIT 21.2 % (36.0-46.0); MCV 84.8 FL (83-99)
[2017-01-22 09:00] LABS: ALKALINE PHOSPHATASE 58 IU/L (3-129); ANION GAP 5 MEQ/L (2-14); CHLORIDE 118 MEQ/L (99-109); GFR ESTIMATE (CALCULATED) > 59 mL/min/; GLUCOSE 214 mg/dL (70-99); SAMPLE HEMOLYSIS CHECK 0; SAMPLE ICTERIC CHECK 0; SAMPLE LIPEMIA CHECK 0; SODIUM 145 MEQ/L (136-147); UREA NITROGEN (BUN) 18 mg/dL (9-23)
[2017-01-22 09:01] LABS: TOTAL BILIRUBIN 0.5 MG/DL (0.0-1.0)
[2017-01-22 17:45] LABS: POINT-OF-CARE METER ID UU13113731
[2017-01-22 19:03] LABS: METH RESISTANT S AUREUS PCR NEGATIVE (NEGATIVE)
[2017-01-22 19:04] LABS: PROBE CHECK PASS; SPECIMEN PROCESSING CONTROL PASS
[2017-01-22 19:54] LABS: MCV 86.9 FL (83-99)
[2017-01-23] VITALS (9 sets, daily range): BP systolic 151–197; BP diastolic 58–88
[2017-01-23 05:06] LABS: EOSINOPHIL (%) 5.6 % (0-5); EOSINOPHIL COUNT 0.5 K/uL (0-0.3); HEMATOCRIT 32.9 % (36.0-46.0); IMMATURE GRANULOCYTE (%) 0.5 % (0.0-0.7); INSTRUMENT ABS NEUTROPHIL CT 4.2 K/uL; LYMPHOCYTE COUNT 2.7 K/uL (1.0-2.8); MCH 28.1 PG (29.0-34.0); MCHC 33.1 G/DL (30.0-36.0); MCV 84.8 FL (83-99); MEAN PLAT.VOLUME 8.6 uM^3 (9.5-12.4); MONOCYTE (%) 7.8 % (3-12); MONOCYTE COUNT 0.6 K/uL (0-0.8); NEUTROPHIL (%) 52.5 % (45-76); NEUTROPHIL COUNT 4.2 K/uL (1.8-6.4); PLATELET COUNT 247 K/uL (156-360); RBC DIS.WIDTH-SD 55.3 % (39-53); WHITE BLOOD COUNT 8.1 K/uL (4.1-10.2)
[2017-01-23 05:08] LABS: RED BLOOD COUNT 3.88 M/uL (3.80-5.20)
[2017-01-23 05:10] LABS: INTER. NORMALIZED RATIO 1.2
[2017-01-23 05:15] LABS: POTASSIUM 3.7 mEq/L (3.7-5.4); SODIUM 146 mEq/L (136-147)
[2017-01-23 05:17] LABS: GLUCOSE 157 mg/dL (70-99)
[2017-01-23 05:19] LABS: ANION GAP 9 MEQ/L (2-14)
[2017-01-23 05:21] LABS: GFR ESTIMATE (CALCULATED) > 59 mL/min/
[2017-01-23 05:22] LABS: ALKALINE PHOSPHATASE 61 IU/L (3-129); CHLORIDE 118 mEq/L (99-109); TOTAL BILIRUBIN 0.5 mg/dL (0.0-1.0); UREA NITROGEN (BUN) 11 mg/dL (9-23)
[2017-01-23 06:32] LABS: POINT-OF-CARE METER ID UU14174217
[2017-01-23 11:32] LABS: POINT-OF-CARE METER ID UU14162636
[2017-01-23 12:29] LABS: HEMATOCRIT 31.8 % (36.0-46.0); MCV 87.6 FL (83-99)
[2017-01-23 17:58] LABS: HEMATOCRIT 35.7 % (36.0-46.0); MCV 89.3 FL (83-99)
[2017-01-24 00:23] LABS: POINT-OF-CARE METER ID UU14174216
[2017-01-24 01:02] LABS: HEMATOCRIT 36.4 % (36.0-46.0); MCV 85.2 FL (83-99)
[2017-01-24 05:50] VITALS: BP 168/72
[2017-01-24 06:41] LABS: ANION GAP 8 MEQ/L (2-14); CHLORIDE 109 MEQ/L (99-109); GFR ESTIMATE (CALCULATED) > 59 mL/min/; GLUCOSE 202 mg/dL (70-99); POTASSIUM 3.1 MEQ/L (3.7-5.4); SAMPLE HEMOLYSIS CHECK 0; SAMPLE ICTERIC CHECK 0; SAMPLE LIPEMIA CHECK 0; UREA NITROGEN (BUN) 7 mg/dL (9-23)
[2017-01-24 06:48] LABS: EOSINOPHIL (%) 3.2 % (0-5); EOSINOPHIL COUNT 0.4 K/uL (0-0.3); HEMATOCRIT 36.5 % (36.0-46.0); IMMATURE GRANULOCYTE (%) 0.6 % (0.0-0.7); IMMATURE GRANULOCYTE COUNT 0.1 K/uL; INSTRUMENT ABS NEUTROPHIL CT 8.6 K/uL; MCHC 32.9 G/DL (30.0-36.0); MCV 85.1 FL (83-99); MEAN PLAT.VOLUME 8.4 uM^3 (9.5-12.4); MONOCYTE (%) 5.1 % (3-12); MONOCYTE COUNT 0.6 K/uL (0-0.8); NEUTROPHIL (%) 73.9 % (45-76); NEUTROPHIL COUNT 8.6 K/uL (1.8-6.4); PLATELET COUNT 283 K/uL (156-360); RBC DIS.WIDTH-CV 18.3 % (11.8-14.6); RBC DIS.WIDTH-SD 57.1 % (39-53); RED BLOOD COUNT 4.29 M/uL (3.80-5.20); WHITE BLOOD COUNT 11.6 K/uL (4.1-10.2)
[2017-01-24 06:49] LABS: SODIUM 137 MEQ/L (136-147)
[2017-01-24 07:44] VITALS: BP 135/75
[2017-01-24 11:14] LABS: POINT-OF-CARE METER ID UU14174216
[2017-01-24 12:00] VITALS: BP 105/52; BP 161/80
[2017-01-24 17:53] VITALS: BP 142/67
[2017-01-24 18:08] LABS: MCV 87.4 FL (83-99)
[2017-01-24 19:13] VITALS: BP 192/77
[2017-01-24 23:31] VITALS: BP 161/100
[2017-01-25 05:38] VITALS: BP 157/68
[2017-01-25 06:25] LABS: HEMATOCRIT 35.5 % (36.0-46.0); MCHC 32.7 G/DL (30.0-36.0); MCV 85.5 FL (83-99); MEAN PLAT.VOLUME 8.3 uM^3 (9.5-12.4); PLATELET COUNT 279 K/uL (156-360); RBC DIS.WIDTH-CV 18.6 % (11.8-14.6); RBC DIS.WIDTH-SD 58.7 % (39-53); RED BLOOD COUNT 4.15 M/uL (3.80-5.20)
[2017-01-25 06:35] LABS: ANION GAP 8 MEQ/L (2-14); CHLORIDE 109 MEQ/L (99-109); GFR ESTIMATE (CALCULATED) > 59 mL/min/; POTASSIUM 3.4 MEQ/L (3.7-5.4); SAMPLE HEMOLYSIS CHECK 0; SAMPLE ICTERIC CHECK 0; SAMPLE LIPEMIA CHECK 0; SODIUM 140 MEQ/L (136-147); UREA NITROGEN (BUN) 7 mg/dL (9-23)
[2017-01-25 06:37] LABS: GLUCOSE 111 mg/dL (70-99)
[2017-01-25 08:46] VITALS: BP 185/81
[2017-01-25 12:30] VITALS: BP 142/94
[2017-01-25 16:30] LABS: POINT-OF-CARE METER ID UU13113781
[2017-01-25 18:22] VITALS: BP 149/65
[2017-01-25 18:43] LABS: HEMATOCRIT 32.2 % (36.0-46.0); MCV 86.8 FL (83-99)
[2017-01-25 19:45] VITALS: BP 200/106
[2017-01-25 22:00] VITALS: BP 178/96
[2017-01-26] VITALS (8 sets, daily range): BP systolic 132–191; BP diastolic 61–90
[2017-01-26 00:09] LABS: POINT-OF-CARE METER ID UU13113781
[2017-01-26 05:35] LABS: POINT-OF-CARE METER ID UU13113781; POINT-OF-CARE USER ID ENVMNS
[2017-01-26 18:19] LABS: D-DIMER ELISA 1.06 mg/L FEU (< 0.57)
[2017-01-26 21:45] LABS: POINT-OF-CARE METER ID UU14149397
[2017-01-27 03:00] LABS: C DIFF TOXIN NEGATIVE (NEGATIVE)
[2017-01-27 03:23] LABS: PROBE CHECK PASS; SPECIMEN PROCESSING CONTROL PASS
[2017-01-27 05:02] VITALS: BP 149/68
[2017-01-27 05:50] LABS: CHLORIDE 108 mEq/L (99-109); POTASSIUM 3.6 mEq/L (3.7-5.4); SODIUM 142 mEq/L (136-147)
[2017-01-27 05:52] LABS: GLUCOSE 104 mg/dL (70-99)
[2017-01-27 05:53] LABS: ANION GAP 9 MEQ/L (2-14)
[2017-01-27 05:56] LABS: GFR ESTIMATE (CALCULATED) > 59 mL/min/
[2017-01-27 05:57] LABS: UREA NITROGEN (BUN) 18 mg/dL (9-23)
[2017-01-27 08:21] VITALS: BP 146/78
[2017-01-27 12:33] VITALS: BP 165/82
[2017-01-27 16:56] VITALS: BP 183/72
[2017-01-27 18:25] LABS: POINT-OF-CARE METER ID UU14188577
[2017-01-27 20:31] VITALS: BP 133/74
[2017-01-27 21:24] LABS: POINT-OF-CARE METER ID UU14188577
[2017-01-27 23:59] VITALS: BP 146/67
[2017-01-28 06:16] LABS: POINT-OF-CARE METER ID UU14149397
[2017-01-28 08:34] VITALS: BP 144/66
[2017-01-28 11:50] VITALS: BP 139/69
[2017-01-28 16:37] VITALS: BP 142/62
[2017-01-29 00:17] LABS: POINT-OF-CARE METER ID UU14149397
[2017-01-29 00:37] VITALS: BP 136/76
[2017-01-29 06:31] LABS: POINT-OF-CARE METER ID UU14188577
[2017-01-29 07:59] VITALS: BP 159/70
[2017-01-29 09:53] LABS: ALKALINE PHOSPHATASE 56 IU/L (3-129); ANION GAP 7 MEQ/L (2-14); CHLORIDE 102 MEQ/L (99-109); GFR ESTIMATE (CALCULATED) > 59 mL/min/; GLUCOSE 149 mg/dL (70-99); POTASSIUM 3.1 MEQ/L (3.7-5.4); SAMPLE HEMOLYSIS CHECK 0; SAMPLE ICTERIC CHECK 0; SAMPLE LIPEMIA CHECK 0; SODIUM 139 MEQ/L (136-147); TOTAL BILIRUBIN 0.6 MG/DL (0.0-1.0); UREA NITROGEN (BUN) 17 mg/dL (9-23)
[2017-01-29 11:49] LABS: POINT-OF-CARE METER ID UU14188577
[2017-01-29 16:14] VITALS: BP 138/74
[2017-01-29 17:40] LABS: POINT-OF-CARE METER ID UU14188577
[2017-01-29 23:46] VITALS: BP 130/74
[2017-01-30 06:09] LABS: POINT-OF-CARE METER ID UU14188577
[2017-01-30 06:21] LABS: HEMATOCRIT 30.4 % (36.0-46.0); MCH 28.3 PG (29.0-34.0); MCHC 32.2 G/DL (30.0-36.0); MCV 87.9 FL (83-99); MEAN PLAT.VOLUME 8.8 uM^3 (9.5-12.4); PLATELET COUNT 322 K/uL (156-360); RBC DIS.WIDTH-CV 19.6 % (11.8-14.6); RED BLOOD COUNT 3.46 M/uL (3.80-5.20); WHITE BLOOD COUNT 7.5 K/uL (4.1-10.2)
[2017-01-30 06:43] LABS: ALKALINE PHOSPHATASE 59 IU/L (3-129); ANION GAP 9 MEQ/L (2-14); CHLORIDE 106 MEQ/L (99-109); GFR ESTIMATE (CALCULATED) > 59 mL/min/; GLUCOSE 133 mg/dL (70-99); POTASSIUM 3.5 MEQ/L (3.7-5.4); SAMPLE HEMOLYSIS CHECK 0; SAMPLE ICTERIC CHECK 0; SAMPLE LIPEMIA CHECK 0; SODIUM 140 MEQ/L (136-147); TOTAL BILIRUBIN 0.6 MG/DL (0.0-1.0); UREA NITROGEN (BUN) 17 mg/dL (9-23)
[2017-01-30 08:04] VITALS: BP 130/82
[2017-01-30 12:15] LABS: POINT-OF-CARE METER ID UU14188577
[2017-01-30 21:13] LABS: POINT-OF-CARE METER ID UU14188577
[2017-01-30 23:48] VITALS: BP 189/84
[2017-01-31 01:59] VITALS: BP 170/80
[2017-01-31 08:32] VITALS: BP 183/77
[2017-01-31 11:05] VITALS: BP 136/66
[2017-01-31 11:56] LABS: POINT-OF-CARE METER ID UU14149397
[2017-01-31 16:16] VITALS: BP 182/78
[2017-01-31 16:40] VITALS: BP 156/78
[2017-01-31 21:45] LABS: POINT-OF-CARE METER ID UU14188577
[2017-01-31 23:59] VITALS: BP 169/89
[2017-02-01 00:05] LABS: POINT-OF-CARE METER ID UU14188577
[2017-02-01 05:23] LABS: CHLORIDE 109 mEq/L (99-109); SODIUM 136 mEq/L (136-147)
[2017-02-01 05:25] LABS: POTASSIUM 4.4 mEq/L (3.7-5.4)
[2017-02-01 05:26] LABS: GLUCOSE 149 mg/dL (70-99)
[2017-02-01 05:27] LABS: ANION GAP 5 MEQ/L (2-14); TOTAL BILIRUBIN 0.5 mg/dL (0.0-1.0)
[2017-02-01 05:29] LABS: ALKALINE PHOSPHATASE 56 IU/L (3-129); GFR ESTIMATE (CALCULATED) > 59 mL/min/
[2017-02-01 05:30] LABS: UREA NITROGEN (BUN) 19 mg/dL (9-23)
[2017-02-01 08:23] VITALS: BP 193/80
[2017-02-01 16:56] LABS: POINT-OF-CARE METER ID UU14188577
== END 2017-02-01 20:19 | disposition home health service (06) | DRG 378 ==
LOC: EME 16:52 → 4WEST 20:18 → EDOF 20:18 → 5EAST 20:18 → 4WEST 01-22 16:36 → 4EAST 01-23 23:36 → 3EAST 01-26 11:02
PROVIDERS: Emergency Medicine; Internal Medicine; Internal Medicine Gastroenterology
DX: K62.5 Hemorrhage of anus and rectum (principal); D62 Acute posthemorrhagic anemia; K25.9 Gastric ulcer, unspecified as acute or chronic, without hemorrhage or perforation; K63.3 Ulcer of intestine; K64.8 Other hemorrhoids; T82.7XXA Infection and inflammatory reaction due to other cardiac and vascular devices, implants and grafts, initial encounter; L02.213 Cutaneous abscess of chest wall; Y83.2 Surgical operation with anastomosis, bypass or graft as the cause of abnormal reaction of the patient, or of later complication, without mention of misadventure at the time of the procedure; E11.69 Type 2 diabetes mellitus with other specified complication; M86.8X8 Other osteomyelitis, other site; R09.02 Hypoxemia; R06.2 Wheezing; J90 Pleural effusion, not elsewhere classified; E87.70 Fluid overload, unspecified; K71.6 Toxic liver disease with hepatitis, not elsewhere classified; T46.6X5A Adverse effect of antihyperlipidemic and antiarteriosclerotic drugs, initial encounter; I69.320 Aphasia following cerebral infarction; I69.351 Hemiplegia and hemiparesis following cerebral infarction affecting right dominant side; I69.391 Dysphagia following cerebral infarction; R13.10 Dysphagia, unspecified; I10 Essential (primary) hypertension; I25.10 Atherosclerotic heart disease of native coronary artery without angina pectoris; I25.2 Old myocardial infarction; Z95.1 Presence of aortocoronary bypass graft; F03.90 Unspecified dementia, unspecified severity, without behavioral disturbance, psychotic disturbance, mood disturbance, and anxiety; D63.8 Anemia in other chronic diseases classified elsewhere; Z93.1 Gastrostomy status; Z86.010 Personal history of colon polyps; Z87.11 Personal history of peptic ulcer disease; Z87.01 Personal history of pneumonia (recurrent); Z87.19 Personal history of other diseases of the digestive system; Z87.81 Personal history of (healed) traumatic fracture; Z79.4 Long term (current) use of insulin; Z79.82 Long term (current) use of aspirin; Z79.02 Long term (current) use of antithrombotics/antiplatelets
CPT/HCPCS: 71010; 71260; 74000; 78278; 80048; 80053; 80069; 82948; 83605; 83630; 83880; 84484; 85014; 85018; 85025; 85027; 85379; 85610; 86900; 86901; 86920; 87040; 87493; 87641; 88305; 88342 TC; 93005; 93306; 94640; 94640 76; 94760; 94799; 99202; 99281; 99285; A6260; A9512; A9560; C9113; J0360; J1815; J1940; J2270; J7042; J7050; P9016; S0032